=== PATIENT | female | born 1985 | race Hispanic/Latino ===

== ENCOUNTER 2017-10-31 18:22 | Inpatient (IN) | payer OTHER ==
[2017-10-31 18:44] VITALS: BMI 46.5
[2017-10-31] MEDS ORDERED: Penicillin G Potassium 5 MU in Sodium Chloride 0.9% 50 ML IVPB ONE (18:52)
[2017-10-31] MEDS: Lactated Ringer's 1,000 ML IV SCH ×2 (19:00→20:00)
[2017-10-31] MEDS ORDERED: Lactated Ringer's 1,000 ML IV SCH (19:00)
[2017-10-31 19:33] LABS: BASO # 0.2 K/uL (0.0-0.2); BASO % 1.4 % (0.0-2.0); EOS # 0.1 K/uL (0.0-0.7); EOS % 0.7 % (0.0-4.0); HEMOGLOBIN 9.5 g/dL (12.0-16.0); LYMPH # 3.4 K/uL (1.0-4.3); LYMPH % 24.8 % (20.0-40.0); MEAN CELL VOLUME 72.7 fl (81.0-99.0); MEAN CORPUSCULAR HEMOGLOBIN 22.7 pg (27.0-31.0); MEAN CORPUSCULAR HGB CONC 31.2 g/dL (33.0-37.0); MONO % 7.3 % (0.0-10.0); NEUT # 8.9 K/uL (1.8-7.0); NEUT % 65.8 % (50.0-75.0); NRBC % 0.2 % (0.0-0.0); RBC 4.2 Mil/uL (3.80-5.20); RED CELL DISTRIBUTION WIDTH 18.1 % (11.5-14.5); WHITE BLOOD COUNT 13.5 K/uL (4.8-10.8)
[2017-10-31] MEDS ORDERED: Fentanyl/Bupivacaine HCl 250 ML EPI ONE (19:56)
--- NOTE | 2017-10-31 20:11 | OBPN ---
Datetime: 10/31/2017 20:08 IP Progress Note Comment: After chart rev'd I asked patient about not doing glucola. She mi sunderstood instructoins and never did test. Wll check accucheks. Again, I discussed risks/complicatoins with poss LGA and now possible GDM... she still wants to deliver vaginally/not Datetime: 10/31/2017 18:40 Pool Provider: Negative Membranes, Provider: Ruptured Amniotic Fluid Color, Provider: Clear Contraction Comments Provider: + FHR - Baseline A Provider: 145 IP Fetus A Comments: One accel noted Presentation-Admit: Vertex NICHD Accel Fetus A IP Provider: 15X15 FHR Category Provider Fetus A: Category I NICHD Variability Prov Fetus A: Moderate 6-25bpm Dilatation, Provider: 3 Effacement, Provider: 50 Station, Provider: -2 NICHD Decel Fetus A IP Provider: None
--- NOTE | 2017-10-31 20:11 | OBADHP ---
Datetime: 10/31/2017 18:40 IP Chief Complaint Other: GBS+ IP Admit Plan Other: IV (Annotations: Data stored by CPN on behalf of user) Admit Comment, IP Provider: 32yo IUP at 39w6d c/o CTX pain since 5pm. She feels leaking at 5 :30pm. No VB +FM She was checked at CP/Dr Downs office today and was 3cm. PNC: CP Dr Downs - GBS+ last sono Oct 24 - 8lb PMH: obese; denies GDM PSH: D_C x 3 NKA POBH: TOP x 3; x 1 6.5lb PGYNH: no STD A: IUP at 39w latent phase of labor SROM PLAN: Admit to L_D Discussion with her nad her partner about wt gain/possible LGA, labor, delivery, pain managment, r isks/potential complications incl with LGA and care. She wants epidural and to labor/del iver vaginally. She undertood and thier questions answered. Pelvic Type - PN: Adequate Extremities - PN: Normal Abdomen - PN: Abnormal Back - PN: Normal Lungs - PN: Normal Heart - PN: Normal Thyroid - PN: Normal Neurologic - PN: Normal HEENT - PN: Normal General - PN: Abnormal Presentation-Admit: Vertex IP Fetus A Comments: One accel noted FHR - Baseline A Provider: 145 Amniotic Fluid Color, Provider: Clear Membranes, Provider: Ruptured Contraction Comments Provider: + Comments, ACOG Physical Exam: 50lb wt gain Obese; appears uncomfortable due to CTX pain Pool Provider: Negative IP Hx Assessment: The History has been Reviewed and is Current IP Chief Complaint: Uterine contractions NICHD Variability Prov Fetus A: Moderate 6-25bpm NICHD Accel Fetus A IP Provider: 15X15 FHR Category Provider Fetus A: Category I NICHD Decel Fetus A IP Provider: None Dilatation, Provider: 3 Effacement, Provider: 50 Station, Provider: -2 Genitourinary Exam: Normal DTRs - PN: Normal EGA AdmitDate IP: 39.6 IP Adm Impression: Term, intrauterine ; No Active Labor; Intact Membranes IP Admit Plan: Admit to unit; Initiate labor protocol
[2017-10-31] MEDS ORDERED: Penicillin G 5 Million Unit Vial IVPB ONE (20:43)
--- NOTE | 2017-10-31 22:56 | OBPN ---
Datetime: 10/31/2017 22:30 IP Progress Impression: Normal progression of labor IP Informed Consent Obtain: Vaginal Delivery; Risks, Benefits and Alternatives Discussed IP Progress Plan: Continue present management Pool Provider: Positive Membranes, Provider: Ruptured Amniotic Fluid Color, Provider: Clear Contraction Comments Provider: 2-5m FHR - Baseline A Provider: 150 Presentation-Admit: Vertex IP Progress Note Comment: She rec'd epidural and feels muich better. Accucheck 86mg/dl A: Active phase of labor; GBS+ PLAN continue to monitor labor progress; O2/left lateral; nipple stim discussed; NICHD Accel Fetus A IP Provider: 15X15 FHR Category Provider Fetus A: Category II NICHD Variability Prov Fetus A: Moderate 6-25bpm Dilatation, Provider: 9 Effacement, Provider: 100 Station, Provider: -1 NICHD Decel Fetus A IP Provider: Variable
[2017-11-01] MEDS ORDERED: Oxytocin 30 UNITS in Sodium Chloride 0.9% 500 ML IV ONE (00:49)
[2017-11-01] MEDS ORDERED: Lidocaine 1% Inj (20ml) ONE (01:01)
[2017-11-01] MEDS ORDERED: Oxytocin 30 UNITS in Sodium Chloride 0.9% 500 ML IV SCH (02:15)
[2017-11-01] MEDS ORDERED: Benzocaine/Menthol SPRAY TOP PRN (03:30)
[2017-11-01] MEDS ORDERED: Oxycodone/Acetaminophen 5/325 mg Tab PO PRN (03:30)
[2017-11-01] MEDS: Oxycodone/Acetaminophen 5/325 mg Tab PO PRN ×3 (06:29→17:15)
[2017-11-01] MEDS: Benzocaine/Menthol SPRAY TOP PRN ×2 (06:35→11:28)
[2017-11-01 06:48] VITALS: RESP 20
--- NOTE | 2017-11-01 07:32 | OBDS ---
DELIVERY PERSONNEL Delivery Doctor: Lorraine Musa DO [employer] Supervisor: Haroldo Bernal RN Anesthesiologist: Fritz Kennedy MD MATERNAL INFORMATION Delivery Anesthesia: Local; Epidural Medications in Delivery: 30 PITOCIN IN 500 ML LR Estimated Blood Loss (ml): 200 Placenta Cultured: No Maternal Complications: None Provider Comments: She was pushing and delivered infant's head over an intact perineum. Raghavendra a nd suprapubic pressure did not facilitate delivery. MLE was performed. With CTX, Raghavendra, suprapu bic pressure and delivery of poertior shoulder delivered remainder of baby. Peds was called. 5,9 at 1, 5min. Good ROM of all extremities acc to PEDS. Placenta was delivered intact spontaneously . Perinela repair as above. EBL 200cc LABOR SUMMARY EDC: 11/01/2017 00:00 No. Babies in Womb: 1 Attempted: No Labor Anesthesia: Epidural LABOR INFORMATION Reason for Induction: Not Applicable Onset of Labor: 11/01/2017 16:00 Complete Dilatation: 11/01/2017 00:30 Oxytocin: N/A Group B Beta Strep: Positive Antibiotics # of Doses: 2 Antibiotics Time of Last Dose: 0100 Steroids Given: None Reason Steroids Not Administered: Not Applicable MEMBRANES Membranes Rupture Method: Spontaneous Rupture of Membranes: 10/31/2017 17:30 Length of Rupture (hrs): 9.37 Amniotic Fluid Color: Clear Amniotic Fluid Amount: Moderate Amniotic Fluid Odor: Normal STAGES OF LABOR Stage 1 hrs: -15 Stage 1 min: -30 Stage 2 hrs: 2 Stage 2 min: 22 Stage 3 hrs: 0 Stage 3 min: 28 Total Time in Labor hrs: -12 Total Time in Labor min: -40 VAGINAL DELIVERY Episiotomy: Median Laceration Extension: Second Degree Laceration Type: Perineal Laceration Repair: Yes Laceration Repair Note: 1% Lidocaine infiltrated )5cc). Perineal laceratoin repeaired with 2.0 Vicr yl sutures - interrupted sutures posterior x 3 and 2.0 Vicryl Rapide sutures for MLE Initial Vag Sponge Count: 5 Final Vag Sponge Count: 10 Initial Vag Sharps Count: 0 Final Vag Sharps Count: 3 Sponge Count Correct: Yes Sharps Count Correct: Yes Count Comment: 10 laps one syringe three suture needles BABY A INFORMATION Infant Delivery Date/Time: 11/01/2017 02:52 Method of Delivery: Vaginal Born in Route : No : N/A Forceps: N/A Vacuum Extraction: N/A Shoulder Dystocia : Yes SHOULDER DYSTOCIA BABY A Delivery of Head: 11/01/2017 02:49 Infant Delivery Date/Time: 11/01/2017 02:52 Time Head to Delivery : 3.0 1st Intervention to Resolve: Episiotomy 2nd Intervention to Resolve: McRobert's Maneuver 3rd Intervention to Resolve: Suprapubic Pressure 4th Intervention to Resolve: Posterior Arm Release Verify NO Fundal Pressure: No Fundal Pressure Applied PRESENTATION/POSITION BABY A Presentation: Cephalic Cephalic Presentation: Vertex Breech Presentation: N/A PLACENTA INFORMATION BABY A Placenta Delivery Time : 11/01/2017 03:20 Placenta Method of Delivery: Spontaneous Placenta Status: Delivered SCORES BABY A Heart Rate 1 min: >100 bpm Resp Effort 1 min: Slow, Irregular Reflex Irritability 1 min: Grimace Muscle Tone 1 min: Some Flexion of Extremities Color 1 min: Blue/Pale Resuscitation Effort 1 min: Tactile Stimulation; PPV/NCPAP SCORE 1 MIN: 5 Heart Rate 5 min: >100 bpm Resp Effort 5 min: Good Cry Reflex Irritability 5 min: Cough or Sneeze or Pulls Away Muscle Tone 5 min: Active Motion Color 5 min: Body [place], Extremities Blue Resuscitation Effort 5 min: Tactile Stimulation SCORE 5 MIN: 9 INFANT INFORMATION BABY A Gestational Age at Delivery: 40.0 Gestational Status: Term Outcome : Liveborn Infant Condition : Stable Sex: Female WEIGHT/LENGTH BABY A Infant Birthweight (gms): 4325 Weight (lb): 9 Infant Weight (oz): 9 CORD INFORMATION BABY A No. Cord Vessels: 3 Nuchal Cord : N/A Suction: Mouth; Nose (Annotations: Data stored by N on behalf of user) ASSESSMENT BABY A Complications: Multiple Late Decels; Multiple Variable Decels; Shoulder Dystocia Physical Findings at Delivery: Molding of the Head; Bruising Infant Respirations: Appears Normal Professional Caster/ALS Called : No Care By: Transferred To: Remains with Mother
[2017-11-01] MEDS ORDERED: Multivitamin With Minerals Tab PO SCH (09:00)
[2017-11-01] MEDS: Multivitamin With Minerals Tab PO SCH (09:56)
--- NOTE | 2017-11-01 10:39 | OBPPN ---
Datetime: 11/01/2017 10:21 PP Pain Prov: Within normal limits PP Nausea Prov: Denies PP Flatus Prov: Yes PP Breasts Prov: Not Done PP Heart Prov: Normal PP Lungs Prov: Normal PP Abdomen/Uterus Prov: Normal PP Lochia Prov: Not Done PP Vulva/Perineum Prov: Not Done PP CVA Tenderness Prov: Normal PP Extremities Prov: Normal PP Progress Prov: Normal PP Impression Prov: Normal progression PP Plan Prov: Continue present management PP Progress Note Prov: Patient's doing well without complaints ambulate and tolerating diet pain wel l-controlled Vital signs stable afebrile Uterus firm below the umbilicus Extremities no Homans day 0 ambulate regular diet and analgesia as needed Vital Signs Provider PP: Reviewed
[2017-11-02 06:43] LABS: HEMOGLOBIN 7.3 g/dL (12.0-16.0); MEAN CELL VOLUME 72.8 fl (81.0-99.0); MEAN CORPUSCULAR HGB CONC 31.6 g/dL (33.0-37.0); RBC 3.19 Mil/uL (3.80-5.20); WHITE BLOOD COUNT 12.5 K/uL (4.8-10.8)
[2017-11-02] MEDS: Multivitamin With Minerals Tab PO SCH (08:21)
[2017-11-02] MEDS: Oxycodone/Acetaminophen 5/325 mg Tab PO PRN (08:22)
[2017-11-02] MEDS: Benzocaine/Menthol SPRAY TOP PRN (20:15)
[2017-11-03] MEDS: Multivitamin With Minerals Tab PO SCH (10:24)
--- NOTE | 2017-11-03 12:53 | US ---
PROCEDURE: Right lower extremity venous duplex Doppler. HISTORY: Rt Calf Pain( Post ) COMPARISON: None available. TECHNIQUE: Common femoral, superficial femoral, popliteal and posterior tibial veins were evaluated. Flow was assessed with color Doppler, compressibility, assessment of phasic flow and augmentation response. FINDINGS: COMMON FEMORAL VEIN: Unremarkable. SUPERFICIAL FEMORAL VEIN: Unremarkable. POPLITEAL VEIN: Unremarkable. POSTERIOR TIBIAL VEIN: Unremarkable. OTHER FINDINGS: None. IMPRESSION: No evidence of deep venous thrombosis in the right lower extremity.
--- NOTE | 2017-11-03 13:21 | OBDCSUM ---
Datetime: 11/03/2017 13:05 Discharged to, Provider: Home Follow up at, Provider: OB DOctor Disch Instr Activity: Normal activity; May Shower Disch Instr Diet: Regular Discharge Instructions, Provider: Routine instructions given Discharge Diagnosis, Provider: Term Delivered Discharge Time: 11/03/2017 13:19 Follow up in weeks, Provider: 6 weeks Disch Referrals: None Contraception discussed, Prov: Yes Disch Activity Restrictions: No sexual activity; Nothing in vagina - [place], tampons, douche Discharge Comment, Provider: S/P Uncomplicated , Clinically Stable. Discharge Diagnosis Prov Other: S/P Uncomplicated , Clinically Stable.
--- NOTE | 2017-11-03 13:22 | OBPPN ---
Datetime: 11/03/2017 11:39 PP Pain Prov: Within normal limits PP Nausea Prov: Denies PP Flatus Prov: Yes PP Breasts Prov: Normal PP Heart Prov: Normal PP Lungs Prov: Normal PP Abdomen/Uterus Prov: Normal PP Lochia Prov: Normal PP Vulva/Perineum Prov: Normal PP CVA Tenderness Prov: Normal PP Extremities Prov: Abnormal PP Comments Phys Exam Prov: Abd: Soft, NT, BS- present UT- Firm- NT Calf Tenderness- Rt Lower extremity. Straight leg raising - Negative PP Impression Prov: Normal progression PP Progress Note Prov: S/P , PPD #2 Clinically Stable but c/o some pain in the Rt calf. Mild calf tenderness on exam on the right. Plan: Doppler Rt Lower extremity Reevaluate and discharge if Negative. F/U with Your regular Doctor. Pelvic rest for 6 weeks. Pt re evaluated after the Rt Lower leg venous doppler which reports negative . Plan: D/c Home. F/U with OB doctor in 6 weeks F/U with Primary doctor within the week. Vital Signs Provider PP: Reviewed
[2017-11-03 19:10] VITALS: BP 119/72; PULSE 94; TEMP 98.9; O2SAT 100
== END 2017-11-03 13:33 | disposition home or self-care (01) | DRG 373 ==
LOC: H.EROB2 18:22 → H.L&D 18:50 → H.OB/GYN 11-01 05:30
PROVIDERS: ADMIT Obstetrics & Gynecology; ATTEND Obstetrics & Gynecology
PROC: 10E0XZZ Delivery of Products of Conception, External Approach (ICD-10-PCS; principal; 2017-10-31)
PROC: 4A1HXCZ Monitoring of Products of Conception, Cardiac Rate, External Approach (ICD-10-PCS; 2017-10-31)
PROC: 0KQM0ZZ Repair Perineum Muscle, Open Approach (ICD-10-PCS; 2017-10-31)
DX: O76 Abnormality in fetal heart rate and rhythm complicating labor and delivery (principal); O66.0 Obstructed labor due to shoulder dystocia; Z37.0 Single live birth; O99.824 Streptococcus B carrier state complicating childbirth; O70.1 Second degree perineal laceration during delivery; O9A.22 Injury, poisoning and certain other consequences of external causes complicating childbirth; Z3A.39 39 weeks gestation of pregnancy